=== PATIENT | female | born 2000 | race Two or more races ===

== ENCOUNTER 2024-07-07 20:24 | Emergency (ER) | payer OTHER ==
[~2024-07-07] VITALS: Ht 160 cm; Wt 59.4 kg
[2024-07-07] MEDS ORDERED: GUAIFENESIN 200 MG/10 ML BLIST.PACK PO STA (21:41)
[2024-07-07] MEDS ORDERED: GUAIFENESIN 200 MG/10 ML BLIST.PACK PO ONE (22:06)
[2024-07-07 23:32] LABS: COVID-19 AG NEGATIVE (NEGATIVE)
[2024-07-07 23:55] LABS: INFLUENZA A AG NEGATIVE (NEGATIVE)
[2024-07-08] MEDS ORDERED: KETOROLAC TROMETHAMINE 30 MG VIAL IM STA
[2024-07-08] MEDS ORDERED: KETOROLAC TROMETHAMINE 30 MG VIAL ONE (00:02)
== END 2024-07-08 00:08 | disposition home or self-care (01) ==
LOC: ER 20:24
PROVIDERS: General Practice
DX: J06.9 Acute upper respiratory infection, unspecified (principal); R53.81 Other malaise; Z20.822 Contact with and (suspected) exposure to COVID-19; Z88.0 Allergy status to penicillin